=== PATIENT | female | born 1975 | race Two or more races ===

== ENCOUNTER 2018-08-12 18:33 | Emergency (ER) | payer SELFPAY ==
[~2018-08-12] VITALS: Ht 162.6 cm; Wt 70.3 kg
[2018-08-12 18:49] VITALS: BP 132/69
== END 2018-08-12 20:45 | disposition home or self-care (01) ==
LOC: ER 18:33
DX: S63.501A Unspecified sprain of right wrist, initial encounter (principal); W11.XXXA Fall on and from ladder, initial encounter; Y93.89 Activity, other specified; Y99.8 Other external cause status; Y92.89 Other specified places as the place of occurrence of the external cause
CPT/HCPCS: 73110; 81025

== ENCOUNTER 2020-06-22 07:47 | Emergency (ER) | payer SELFPAY ==
[~2020-06-22] VITALS: Ht 162.6 cm; Wt 70.8 kg
[2020-06-22 08:11] LABS: Urine WBC None Seen /hpf (0 - 5)
[2020-06-22 08:28] LABS: Urine Amorphous Crystal MANY /hpf (None Seen); Urine Bacteria NONE SEEN /hpf (None Seen); Urine Blood 2+ /uL (Negative); Urine Mucus FEW (None Seen); Urine Specific Gravity 1.024 (1.001-1.035)
[2020-06-22] MEDS ORDERED: ONDANSETRON HCL 4 MG/2 ML VIAL IV ONE (10:45)
[2020-06-22] MEDS ORDERED: SODIUM CHLORIDE 0.9% 1,000 ML IV ONE (10:45)
[2020-06-22 11:03] LABS: Basophils # (auto) 0 10 ^3/uL (0-0.2); Basophils % (auto) 0.7 % (0.0-2.0); Eosinophils # (auto) 0 10 ^3/uL (0-0.8); Hemoglobin 10.7 g/dL (12.2-16.2); Lymphocytes # (auto) 0.7 10 ^3/uL (0.4-5.4); Mean Corpuscular Hemoglobin 24.3 pg (28.0-32.0); Mean Corpuscular Hgb Conc. 30.8 g/dL (32.0-36.0); Mean Corpuscular Volume 78.8 fL (80.0-100.0); Monocytes # (auto) 0.2 10 ^3/uL (0-1.3); Neutrophils # (auto) 5.4 10 ^3/uL (1.6-8.6); White Blood Cell 6.3 10^3/uL (4.4-10.8)
[2020-06-22 11:04] LABS: Hematocrit 34.9 % (36.0-46.0); Lymphocytes % (auto) 11.2 % (10.0-50.0); Monocytes % (auto) 2.9 % (0.0-12.0); Neutrophils % (auto) 85.2 % (37.0-80.0); Platelet Count (auto) 321 10^3/uL (140-450); Red Blood Cells 4.42 10^6/uL (4.0-5.20); Red Cell Distribution Width 17.8 % (11.8-14.3)
[2020-06-22 11:28] LABS: Albumin 4.2 g/dL (3.4-5.0); Calcium 8.8 mg/dL (8.5-10.1); Potassium 4.3 mmol/L (3.5-5.1)
[2020-06-22 11:32] VITALS: BP 123/75
[2020-06-22 11:33] LABS: Bilirubin, Total 0.3 mg/dL (0.2-1.0); Total Protein 8.5 g/dL (6.4-8.2)
[2020-06-22] MEDS ORDERED: MECLIZINE HCL 25 MG TAB PO ONE (12:15)
== END 2020-06-22 11:54 | disposition home or self-care (01) ==
LOC: ER 07:47
DX: R42 Dizziness and giddiness (principal); E86.0 Dehydration
CPT/HCPCS: 36415; 70450; 80053; 81001; 85025; 93005; 96361; 96374; 99285; J2405; J7030; J8597

== ENCOUNTER 2024-06-04 13:06 | Emergency (ER) | payer MEDICAID, OTHER ==
[~2024-06-04] VITALS: Ht 170.2 cm; Wt 77.3 kg
[2024-06-04 13:17] VITALS: BP 100/69; PULSE 67; RESP 17; O2SAT 98
[2024-06-04] MEDS: SODIUM CHLORIDE 0.9% 1,000 ML IV ONE (13:30)
[2024-06-04 14:06] LABS: Basophils # (auto) 0.1 10 ^3/uL (0-0.2); Eosinophils # (auto) 0.1 10 ^3/uL (0-0.8); Lymphocytes # (auto) 1.2 10 ^3/uL (0.4-5.4); Monocytes # (auto) 0.6 10 ^3/uL (0-1.3)
[2024-06-04 14:08] LABS: Basophils % (auto) 1.2 % (0.0-2.0); Eosinophils % (auto) 1.7 % (0.0-7.0); Hematocrit 30.7 % (36.0-46.0); Hemoglobin 9.8 g/dL (12.2-16.2); Lymphocytes % (auto) 20.7 % (10.0-50.0); Mean Corpuscular Hemoglobin 26.4 pg (28.0-32.0); Mean Corpuscular Volume 82.3 fL (80.0-100.0); Monocytes % (auto) 9.7 % (0.0-12.0); Neutrophils % (auto) 66.7 % (37.0-80.0); Nucleated Red Blood Cells % 0.1 %; Red Blood Cells 3.73 10^6/uL (4.0-5.20); Red Cell Distribution Width 15.3 % (11.8-14.3)
[2024-06-04 14:13] LABS: Chloride 108 mmol/L (98-107); Potassium 3.8 mmol/L (3.5-5.1); Sodium 141 mmol/L (136-145)
[2024-06-04 14:14] LABS: Anion Gap 8 (5-15); Carbon Dioxide 25 mmol/L (20-30)
[2024-06-04 14:15] LABS: Calcium 9.4 mg/dL (8.7-10.4)
[2024-06-04 14:19] LABS: BUN/Creatinine Ratio 14.3 (10.0-20.0); Blood Urea Nitrogen 12 mg/dL (9-23); Glucose 98 mg/dL (74-106)
== END 2024-06-04 16:14 | disposition left against medical advice (07) ==
LOC: ER 13:06 → EDBD 13:06 → ER 16:14
DX: T67.5XXA Heat exhaustion, unspecified, initial encounter (principal); G45.9 Transient cerebral ischemic attack, unspecified; I10 Essential (primary) hypertension; Z86.73 Personal history of transient ischemic attack (TIA), and cerebral infarction without residual deficits; X58.XXXA Exposure to other specified factors, initial encounter; Y93.89 Activity, other specified; Y92.89 Other specified places as the place of occurrence of the external cause; Y99.8 Other external cause status
CPT/HCPCS: 36415; 70450; 80048; 84484; 85025; 96360; 99284; J7030